=== PATIENT | male | born 1970 | race Asian ===

== ENCOUNTER 2016-12-19 03:58 | Emergency (ER) | payer SELFPAY ==
[~2016-12-19] VITALS: Ht 177.8 cm; Wt 78.6 kg
[~2016-12-19 03:58] MED LIST: AMOX1255 PO
[2016-12-19 04:14] VITALS: BP 134/81
== END 2016-12-19 04:30 | disposition home or self-care (01) ==
LOC: EMS 03:59
DX: R00.2 Palpitations (principal); I10 Essential (primary) hypertension
CPT/HCPCS: 93005; 99283

== ENCOUNTER 2017-07-19 05:29 | Emergency (ER) | payer MEDICAID, OTHER ==
[~2017-07-19] VITALS: Ht 177.8 cm; Wt 90.9 kg
[2017-07-19 05:33] VITALS: BP 183/103
[2017-07-19] MEDS ORDERED: LISI-661 PO (05:34)
== END 2017-07-19 06:56 | disposition left against medical advice (07) ==
LOC: EMS 05:29
DX: R20.2 Paresthesia of skin (principal); R20.0 Anesthesia of skin; I10 Essential (primary) hypertension
CPT/HCPCS: 93005; 99285

== ENCOUNTER 2017-08-13 23:52 | Emergency (ER) | payer OTHER ==
[~2017-08-13] VITALS: Ht 177.8 cm; Wt 77.3 kg
[~2017-08-13 23:52] MED LIST changes: -AMOX1255 PO; +LISI-661 PO
[2017-08-14] MEDS ORDERED: ONDANSETRON HCL 4 MG TABLET PO ONE (01:00)
[2017-08-14 01:02] VITALS: BP 133/80
== END 2017-08-14 01:07 | disposition home or self-care (01) ==
LOC: EMS 23:52
DX: K52.9 Noninfective gastroenteritis and colitis, unspecified (principal); I10 Essential (primary) hypertension; Z79.899 Other long term (current) drug therapy
CPT/HCPCS: 99283; Q0162

== ENCOUNTER 2018-06-29 03:46 | Emergency (ER) | payer OTHER ==
[~2018-06-29] VITALS: Ht 170.2 cm; Wt 81.8 kg
[2018-06-29 06:16] VITALS: BP 200/104
[2018-06-29] MEDS ORDERED: LISI-661 PO (23:19)
== END 2018-06-29 06:21 | disposition left against medical advice (07) ==
LOC: EMS 03:46
DX: R00.2 Palpitations (principal); I10 Essential (primary) hypertension
CPT/HCPCS: 93005

== ENCOUNTER 2018-06-29 23:05 | Emergency (ER) | payer OTHER ==
[~2018-06-29] VITALS: Ht 172.7 cm; Wt 84.1 kg
[2018-06-29] MEDS ORDERED: LISI-661 PO (23:19)
[2018-06-30 03:10] LABS: BASOPHILS % (AUTO) 0.7 % (0.0-2.0); EOSINOPHILS % (AUTO) 3.3 % (1.0-6.0); HEMATOCRIT 48.6 % (41-53); HEMOGLOBIN 16.5 g/dL (13.5-17.5); LYMPHOCYTES # (AUTO) 2.4 K/uL (1.0-4.8); LYMPHOCYTES % (AUTO) 27.5 % (22.0-44.0); MEAN CORPUSCULAR HEMOGLOBIN 31.2 pg (26.0-34.0); MEAN CORPUSCULAR VOLUME 92 fL (80-100); MONOCYTES % (AUTO) 11.7 % (2.0-9.0); NEUTROPHILS # (AUTO) 4.9 K/uL (1.8-7.7); NEUTROPHILS % (AUTO) 56.8 % (40.0-70.0); PLATELET COUNT (AUTO) 294 K/uL (150-450); RED CELL DISTRIBUTION WIDTH 12.8 % (11.5-14.5)
[2018-06-30 03:19] LABS: ANION GAP 7 mmol/L (8-16); CALCIUM, TOTAL 8.5 mg/dL (8.8-10.5); CARBON DIOXIDE 30 mmol/L (22-29); CHLORIDE 102 mmol/L (98-107); CREATININE 1.23 mg/dL (0.60-1.30); GLOMERULAR FILTR. RATE CALC > 60 mL/min (>60); GLUCOSE,RANDOM 108 mg/dL (70-110); POTASSIUM 4.1 mmol/L (3.5-5.1); SODIUM SERUM 139 mmol/L (136-145); UREA NITROGEN, BLOOD 17 mg/dL (7-18)
[2018-06-30 03:25] LABS: ALANINE AMINOTRANSFERASE 74 U/L (12-78); ALBUMIN 3.6 g/dL (3.4-5.0); ALKALINE PHOSPHATASE 69 U/L (46-116); ASPARTATE AMINOTRANSFERASE 40 U/L (15-37); BILIRUBIN,TOTAL 0.6 mg/dL (0.1-1.0); TOTAL PROTEIN, SERUM 7.8 g/dL (6.4-8.2)
[2018-06-30] MEDS ORDERED: ASPIRIN 325 MG TABLET PO ONE (04:15)
[2018-06-30] MEDS ORDERED: METOPROLOL TARTRATE 50 MG TABLET PO ONE (07:45)
[2018-06-30 08:57] VITALS: BP 142/90
[2018-06-30] MEDS ORDERED: METOPROLOL SUCCINATE 25 MG ER TABLET PO SCH (09:00)
[2018-06-30] MEDS ORDERED: AmLODIPine BESYLATE 5 MG TABLET PO SCH (09:00)
[2018-06-30] MEDS ORDERED: ASPIRIN 81 MG EC TABLET PO SCH (09:00)
[2018-06-30] MEDS ORDERED: ATORVASTATIN CALCIUM 10 MG TABLET PO SCH (09:00)
== END 2018-06-30 09:09 | disposition left against medical advice (07) ==
LOC: EMS 23:06
DX: R00.2 Palpitations (principal); R07.89 Other chest pain; I10 Essential (primary) hypertension; Z79.899 Other long term (current) drug therapy
CPT/HCPCS: 36415; 80053; 84484; 85025; 93005 ×2; 93306; 99284; G0480

== ENCOUNTER 2018-09-10 18:50 | Emergency (ER) | payer OTHER ==
[~2018-09-10] VITALS: Ht 172.7 cm; Wt 77.3 kg
[2018-09-10 20:30] VITALS: BP 137/72
[2018-09-10] MEDS ORDERED: DiphenhydrAMINE/ZINC ACET 30 GM CREAM TP ONE (20:30)
== END 2018-09-10 20:56 | disposition home or self-care (01) ==
LOC: EMS 18:52
DX: T63.441A Toxic effect of venom of bees, accidental (unintentional), initial encounter (principal); I10 Essential (primary) hypertension; Y92.89 Other specified places as the place of occurrence of the external cause

== ENCOUNTER 2018-11-13 07:11 | Emergency (ER) | payer OTHER ==
[~2018-11-13] VITALS: Ht 172.7 cm; Wt 72.7 kg
[2018-11-13] MEDS ORDERED: BACITRACIN 0.9 GM PACKET OINTMENT TP ONE (08:00)
[2018-11-13 08:24] VITALS: BP 132/69
== END 2018-11-13 08:29 | disposition home or self-care (01) ==
LOC: EMS 07:12
DX: S80.211A Abrasion, right knee, initial encounter (principal); I10 Essential (primary) hypertension; X58.XXXA Exposure to other specified factors, initial encounter; Y93.89 Activity, other specified; Y92.89 Other specified places as the place of occurrence of the external cause; Y99.0 Civilian activity done for income or pay

== ENCOUNTER 2021-04-07 16:08 | Emergency (ER) | payer OTHER ==
[~2021-04-07] VITALS: Ht 167.6 cm; Wt 70.5 kg
[2021-04-07 16:59] VITALS: BP 139/65
== END 2021-04-07 17:00 | disposition home or self-care (01) ==
LOC: EMS 16:10
DX: R07.81 Pleurodynia (principal); I10 Essential (primary) hypertension
CPT/HCPCS: 71045; 99283

== ENCOUNTER 2021-06-19 00:02 | Emergency (ER) | payer OTHER ==
[~2021-06-19] VITALS: Ht 167.6 cm; Wt 68.2 kg
[2021-06-19 00:39] LABS: COVID AG,FIA SOURCE NASOPHARYNGEAL
[2021-06-19] MEDS ORDERED: IBUPROFEN 600 MG TABLET PO ONE (02:00)
[2021-06-19] MEDS ORDERED: ACETAMINOPHEN 500 MG TABLET PO ONE (02:00)
[2021-06-19] MEDS ORDERED: GuaiFENesin/D-METHORPHAN [SUGAR-FREE] 200-20MG/10 ML SYRUP UDCUP PO ONE (02:00)
[2021-06-19 02:25] VITALS: BP 124/74
== END 2021-06-19 02:24 | disposition home or self-care (01) ==
LOC: EMS 00:04
DX: U07.1 COVID-19 (principal)
CPT/HCPCS: 87426; 99284; U0003; Z7502; Z7610

== ENCOUNTER 2025-04-11 14:53 | Emergency (ER) | payer OTHER ==
[~2025-04-11] VITALS: Ht 172.7 cm; Wt 63.6 kg
[2025-04-11 15:33] VITALS: BP 181/86; PULSE 65; RESP 18; TEMP 97.3; O2SAT 97
[2025-04-11 19:05] LABS: APPEARANCE,URINE CLEAR (CLEAR); GLUCOSE, URINE (UA) NEGATIVE (NEGATIVE); LEUKOCYTE ESTERASE ,URINE NEGATIVE (NEGATIVE); NITRATE,URINE NEGATIVE (NEGATIVE); OCCULT BLOOD,URINE LARGE (NEGATIVE); SPECIFIC GRAVITIY, URINE 1.013 (1.003-1.030)
[2025-04-11 19:13] LABS: SQUAMOUS EPITHELIAL CELL,UR Rare /LPF (None Seen)
== END 2025-04-11 17:19 | disposition left against medical advice (07) ==
LOC: EMS 14:53
DX: R10.A2 Flank pain, left side (principal); Z53.21 Procedure and treatment not carried out due to patient leaving prior to being seen by health care provider
CPT/HCPCS: 81001; 99281; Z7502